=== PATIENT | male | born 1980 | race Caucasian/White ===

== ENCOUNTER 2020-12-27 07:04 | Day surgery (SDC) | payer OTHER ==
[~2020-12-27] VITALS: Ht 170.2 cm; Wt 116.5 kg
[~2020-12-27 07:04] MED LIST: ATEN50TA2 PO; LIDOCAINE 1% MDV 20ML VIAL SQ PRN; LR 1,000 ML IV ONE; PANT40TA29 PO; PRAZ2CAP PO; RIZA10TA2 PO; VENL150C43 PO; ceFAZolin SOD 2 GM in IV 1 EA IV ONE
[2020-12-27] MEDS ORDERED: KETOROLAC 60MG 2ML VIAL As Ordered ONE (07:55)
[2020-12-27] MEDS ORDERED: ONDANSETRON 4MG/2ML VIAL As Ordered ONE (07:55)
[2020-12-27] MEDS ORDERED: LIDOCAINE 2% 100MG/5ML SDV (FOR ANES.) As Ordered ONE (07:55)
[2020-12-27] MEDS ORDERED: dexameTHASONE 4 MG/ML 1ML VIAL (J1100 PER 1MG) As Ordered ONE (07:55)
[2020-12-27] MEDS ORDERED: MIDAZOLAM INJ 2MG/2ML VIAL (J2250 PER 1MG) As Ordered ONE (07:56)
[2020-12-27] MEDS ORDERED: propofoL 500 MG/50 ML VIAL As Ordered ONE (07:56)
[2020-12-27] MEDS ORDERED: fentaNYL 100 MCG/2 ML INJECTION (J3010) As Ordered ONE ×2 (07:56→09:41)
[2020-12-27] MEDS ORDERED: BUPIVACAINE/EPIN 0.25% 30 ML VIAL As Ordered ONE (08:23)
[2020-12-27] MEDS ORDERED: ceFAZolin 2 GM/D5W 50 ML IV BAG (J0690 PER 500MG) As Ordered ONE (08:55)
[2020-12-27] MEDS ORDERED: propofoL 200 MG/20 ML VIAL As Ordered ONE ×3 (09:27→09:40)
[2020-12-27] MEDS ORDERED: LABETALOL 100MG/20ML VIAL As Ordered ONE (09:43)
--- NOTE | 2020-12-27 10:25 | ROOPDOC ---
[facility] Report Of Operation Report of Operation DATE OF PROCEDURE: 12/27/20 PREPROCEDURE DIAGNOSES: Left hand foreign body. POSTPROCEDURE DIAGNOSES: Same. PROCEDURE: Left hand removal of foreign body. SURGEON: Dr. Fracisco Denney MD KNITTING MACHINE OPERATOR HELPER: ANESTHESIA: Dr Jb kitchen/kannan. ESTIMATED BLOOD LOSS: Approximately 10 mL. COMPLICATIONS: None. REMARKS: None. PROCEDURE NOTE: This 40-year-old man had a nylon fragment in his left hypo- thenar eminence. He wished to have this removed. We discussed the pros and cons risks and benefits of continued nonsurgical management versus surgical exploration and attempted removal. He wished to go ahead. I marked the left hand and proceeded to surgery. . DESCRIPTION OF PROCEDURE: The patient was brought to the operating theater. They were placed supine on the operating room table. Hand table was used to the patient's left side. 18 inch tourniquet was applied to left upper extremity appropriately padded. All bony prominences padded. Sequential devices used on the legs. 2 g of IV Ancef administered prior to the start of the case. Left upper extremity prepped and draped in the usual sterile fashion with chlorhexidine prep solution allowing over 3 minutes drying time prior to draping. Preoperative timeout performed to confirm the site patient and surgery. I began by elevating the limb and inflating the tourniquet to 250 mmHg. 5 mL quarter percent Marcaine with epinephrine was instilled in around the incision. I made a longitudinal incision overlying the hypothenar eminence. This is about 1.2 inches long. I dissected through skin and subcutaneous tissue. I identified the hypothenar musculature. I thoroughly explored the wound. There is a small 6 mm black fragment of nylon-appearing material that presented itself and I removed this carefully at the distal end of the incision slightly deeper down. Tourniquet taken down. Meticulous hemostasis achieved. Wound thoroughly irrigated with normal saline. Subcutaneous tissue closed with interrupted 2-0 Vicryl sutures and skin with horizontal mattress 3-0 Ethilon. Skin cleaned with wet and dry dressing followed by application of Adaptic 4 x 8 gauze and overwrapped with Jessica wrap dressing. Patient was woken up from the sedation and transferred off the operating room table and taken to postanesthetic care unit in stable condition. All sponge needle and instrument counts were correct. No complications. Plan for the patient discharged home per day surgery criteria. Prescription sent to the pharmacy of choice electronically. Follow-up in the office in 2 weeks' time. Change dressing postoperative day 1 and 2 and as needed. Postoperative wound instructions were given. It was recommended to keep the wound clean and dry. Dressing changes as needed. It was reinforced with the patient that they should call us or be seen immediately for redness, drainage, or fever. Risk factors for harms from taking opioid medications discussed and assessed including but not limited to personal or family history of substance use diso rder, anxiety or depression, , age 65 or older, COPD or other underlying respiratory conditions, and renal or hepatic insufficiency. Discussed with patient concerns and determined any harms they may experience or be currently experiencing such as nausea or constipation, feeling sedated or confused, breathing interruptions during sleep, or taking or craving more opioids than prescribed or difficulty controlling use (addiction). Discussed early warning signs of overdose including confusion, sedation, slurred speech, abnormal gait. . FRACISCO DENNEY MD Dec 27, 2020 10:25
[2020-12-27] MEDS ORDERED: fentaNYL 100 MCG/2 ML INJECTION (J3010) IV PRN (10:30)
[2020-12-27] MEDS ORDERED: PERCOCET 5MG/325MG TAB PO PRN (10:30)
[2020-12-27] MEDS ORDERED: LR 1,000 ML IV SCH (10:30)
[2020-12-27 10:40] VITALS: BP 137/85
== END 2020-12-27 10:55 | disposition home or self-care (01) ==
LOC: M SDC 07:04
PROVIDERS: ATTEND Orthopaedic Surgery Sports Medicine
DX: S60.552A Superficial foreign body of left hand, initial encounter (principal); W29.8XXA Contact with other powered hand tools and household machinery, initial encounter; Y92.89 Other specified places as the place of occurrence of the external cause; Y93.89 Activity, other specified; Y99.8 Other external cause status; F41.9 Anxiety disorder, unspecified; F32.9 Major depressive disorder, single episode, unspecified; I10 Essential (primary) hypertension; K21.9 Gastro-esophageal reflux disease without esophagitis; M54.9 Dorsalgia, unspecified; G43.909 Migraine, unspecified, not intractable, without status migrainosus; F43.10 Post-traumatic stress disorder, unspecified; E66.9 Obesity, unspecified; Z68.41 Body mass index [BMI] 40.0-44.9, adult; Z79.899 Other long term (current) drug therapy
CPT/HCPCS: 20520; 88300; J0690; J1100; J1885; J2250; J2405; J3010

== ENCOUNTER → 2022-12-18 | Outpatient (REF) ==
[~2022-12-18] MED LIST changes: -LIDOCAINE 1% MDV 20ML VIAL SQ PRN; -LR 1,000 ML IV ONE; -ceFAZolin SOD 2 GM in IV 1 EA IV ONE
== END ==
LOC: M LAB 09:54